=== PATIENT | female | born 1995 | race African-American/Black ===

== ENCOUNTER 2016-06-26 09:02 | Emergency (ER) | payer OTHER ==
[2016-06-26 09:21] VITALS: TEMP 97.5; BMI 30.2
[2016-06-26] MEDS ORDERED: SODIUM CHLORIDE 1,000 ML IV ONE (09:30)
--- NOTE | 2016-06-26 09:45 | PDOC ---
History of Present Illness - General History Source: Patient, Old Records - History of Present Illness Initial Comments: 06/26/16 11:15 The patient is a 20 year old female with a significant past medical history of asthma and seizures (last one 5 years ago) who is arrived to the Emergency Department via EMS with complaints of pre-syncopal episode 2 hours ago. Pt states that she was getting ready for work when she started feeling warmth, lightheadedness, nausea, then had mild pounding headache and felt sob with chest tightness. Episode lasted approximately 15 minutes until EMS arrived. Pt currently asymptomatic. Pt also endorsed intermittent abdominal cramping and back pain similar to her previous menstrual pains. Pt states that she usually gets lightheaded when she is in shower. She denies experiencing any syncopal episodes in the past. She denies numbness, tingling, or blurry vision. She denies fever, chills, cough, nausea, vomiting, diarrhea, melena, bpr, constipation, swelling. She denies any headache or lightheadedness at the time of visit. (-)sick contact (-)recent travel PSH: Gastric Sleeve LMP: started 06/25/16 PCP: Dr. Ravindra Mckenzie <Ana Rolle - Last Filed: 06/26/16 11:14> <iMckey Heart - Last Filed: 06/26/16 12:13> - General Chief Complaint: Lightheaded Stated Complaint: DIZZY Time Seen by Provider: 06/26/16 09:30 Past History <Ana Rolle - Last Filed: 06/26/16 11:14> - Past Medical History Asthma: Yes Suicide Attempt (Hx): No Seizures: Yes - Surgical History GI Surgery: Yes (GASTRIC SLEEVE) - Immunization History Immunization Up to Date: Yes - Psycho/Social/Smoking Cessation Hx Anxiety: No Suicidal Ideation: No Smoking History: Never smoked Have you smoked in the past 12 months: No Hx Alcohol Use: Yes (SOCIAL) Drug/Substance Use Hx: No Substance Use Type: None <Mickey Heart - Last Filed: 06/26/16 12:13> - Past Medical History Allergies/Adverse Reactions: Allergies Allergy/AdvReac Type Severity Reaction Status Date / Time azithromycin [From Zithromax] AdvReac Severe Verified 06/26/16 09:16 Home Medications: Ambulatory Orders Cyclobenzaprine HCl [Flexeril -] 10 mg PO TID #21 tablet 04/22/16 Naproxen [Naprosyn -] 500 mg PO BID #20 tablet 04/22/16 Quazepam [[place]] 15 mg PO ASDIR 04/22/16 Review of Systems - Review of Systems Able to Perform ROS?: Yes Comments:: 06/26/16 11:16 CONSTITUTIONAL: No reported: Fever, Chills, Diaphoresis, Malaise, Loss of Appetite HEENT: No reported: Rhinorrhea, Nasal Congestion, Throat Pain, Throat Swelling, Difficulty Swallowing, Mouth Swelling, Ear Pain, Eye Pain, Visual Changes CARDIOVASCULAR: Yes: chest tightness, SOB, syncope No reported:Palpitations, Irregular Heart Rate, Peripheral Edema RESPIRATORY: No reported: Cough, Shortness of Breath, SOB with Exertion, Orthopnea, Wheezing , Stridor, Hemoptysis GASTROINTESTINAL: No reported: Abdominal pain, Abdominal Distension, Nausea, Vomiting, Diarrhea, Constipation, Melena, Hematochezia GENITOURINARY: No reported: Dysuria, Frequency, Urgency, Hesitancy, Flank Pain, Genital Pain MUSCULOSKELETAL: No reported: Myalgia, Arthralgia, Joint Swelling, Back pain, Neck Pain SKIN: No reported: Rash, Itching, Pallor HEMEATOLOGIC/IMMUNOLOGIC: No reported: Easy Bleeding, Easy Bruising, Lymphadenopathy, Frequent infections ENDOCRINE: No reported: Unexplained Weight Gain, Unexplained Weight Loss, Heat Intolerance , Cold Intolerance NEUROLOGIC: Yes: headache, unsteady gait, vertigo, No reported: Paresthesias, Seizure, Mental Status Changes, Incontinence PSYCHIATRIC: No reported: Anxiety, Depression All Other Systems: Reviewed and Negative <Ana Rolle - Last Filed: 06/26/16 11:14> *Physical Exam - Vital Signs Last Vital Signs Temp Pulse Resp BP Pulse Ox 97.5 F L 55 L 16 100/53 100 06/26/16 09:17 06/26/16 09:17 06/26/16 09:17 06/26/16 09:17 06/26/16 09:17 - Physical Exam Comments: 06/26/16 11:16 GENERAL: The patient is awake, alert, and fully oriented, Nontoxic - in no acute distress. HEAD: Normocephalic, atraumatic. EYES: extraocular movements intact, sclera anicteric, conjunctiva clear. ENT: Normal voice, Moist mucous membranes. NECK: Normal range of motion, supple LUNGS: Breath sounds equal, clear to auscultation bilaterally. No wheezes, no rhonchi, no rales. HEART: Regular rate and rhythm, without murmur, rub or gallop. ABDOMEN: Soft, nontender, normoactive bowel sounds. No guarding, no rebound.No CVA tenderness EXTREMITIES: Normal range of motion, no edema. No clubbing or cyanosis. No cords, erythema, or tenderness. NEUROLOGICAL: No facial assymetry, Normal speech, PSYCH: Normal mood, normal affect. SKIN: Warm, Dry, normal turgor, <Ana Rolle - Last Filed: 06/26/16 11:14> - Vital Signs Last Vital Signs Temp Pulse Resp BP Pulse Ox 97.5 F L 55 L 16 100/53 100 06/26/16 09:17 06/26/16 09:17 06/26/16 09:17 06/26/16 09:17 06/26/16 09:17 <Mickey Heart - Last Filed: 06/26/16 12:13> Heart Score/ECG Review - ECG Impressions Comment:: 06/26/16 11:59 Twelve-lead EKG was performed and reviewed by me. There is normal sinus rhythm with a normal rate. Rate of 63 artifacts present The intervals are normal. There is normal R wave progression There are no ST or T wave abnormalities. Impression: Normal twelve-lead EKG <Mickey Heart - Last Filed: 06/26/16 12:13> ED Treatment Course - LABORATORY CBC & Chemistry Diagram: 06/26/16 09:55 06/26/16 09:55 - ADDITIONAL ORDERS Additional order review: Laboratory Results 06/26/16 06/26/16 10:00 09:55 Sodium 143 Potassium 4.5 Chloride 107 Carbon Dioxide 28 Anion Gap 8 BUN 20 H D Creatinine 0.6 D Creat Clearance w eGFR > 60 Random Glucose 102 Calcium 9.0 Total Bilirubin 0.3 D AST 15 ALT 21 D Alkaline Phosphatase 50 D Total Protein 6.0 L Albumin 3.4 Urine Color Yellow Urine Appearance Clear Urine pH 6.0 Ur Specific [place] 1.027 Urine Protein Negative Urine Glucose (UA) Negative Urine Ketones Negative Urine Blood Negative Urine Nitrite Negative Urine Bilirubin Negative Urine Urobilinogen Negative Ur Leukocyte Esterase Trace H Urine RBC <1 Urine WBC 3 Ur Epithelial Cells Rare Urine Mucus Rare Urine HCG, Qual Negative 06/26/16 09:55 RBC 3.98 MCV 91.1 MCHC 33.3 RDW 13.0 MPV 7.4 L Neutrophils % 83.2 H D Lymphocytes % 9.9 D Monocytes % 5.8 Eosinophils % 0.9 Basophils % 0.2 - Medications Given in the ED: ED Medications Discontinued Medications Generic Name Dose Route Start Last Admin Trade Name Freq PRN Reason Stop Dose Admin Sodium Chloride 1,000 mls @ 1,000 mls/hr 06/26/16 09:30 06/26/16 09:54 Normal Saline - IV 06/26/16 10:29 1,000 mls/hr .Q1H ONE Administration <Ana Rolle - Last Filed: 06/26/16 11:14> - LABORATORY CBC & Chemistry Diagram: 06/26/16 09:55 06/26/16 09:55 <Mickey Heart - Last Filed: 06/26/16 12:13> Medical Decision Making - Medical Decision Making 06/26/16 10:57 20y F hx of seizures (last sz 5 years ago, not on meds currently) presents with episode of presyncope this morning while getting ready for work described as feeling warmth, lightheaded, folowed by sob/chest tightness, mild heaadche, lasting approx 15-20 min until EMS arrived. currently pt asypmtmopatic with unremarkable exam. vitals also normal beside mild bradycardia - BP at baseline. Differential for the patient's presyncope includes but not limited to vasovagal episode, pulmonary embolism, subarachnoid hemorrhage, arrythmia, AAA/ dissection. Based on chronlogy of the patient symptoms and currently being asypmtomatic doubt pulmonary embolism, SAH. No risk factors for dissection/aaa. will check cbc to r/o anemia cmp to r/o electrolyte imbalance ekg to r/o arrhythmia suspect vagal episode will ck labs, ua, preg will give fluids 06/26/16 12:08 labs reviewed negative ekg unremarkable pt asymptomatic and feeling improved will d/c the pt with pmd fu return precautions were discussed I discussed the physical exam findings, ancillary test results and final diagnoses with the patient. I answered all of the patient's questions. The patient was satisfied with the care received and felt comfortable with the discharge plan and treatment plan. The patient will call their primary care physician within 24 hours to arrange follow-up and will return to the Emergency Department with any new, persistent or worsening symptoms. <Mickey Heart - Last Filed: 06/26/16 12:13> *DC/Admit/Observation/Transfer - Attestations Scribe Attestion: 06/26/16 11:16 Documentation prepared by Ana Rolle, acting as medical aides teacher for Mickey Heart MD. <Ana Rolle - Last Filed: 06/26/16 11:14> - Discharge Dispostion Admit: No <Mickey Heart - Last Filed: 06/26/16 12:13> Diagnosis at time of Disposition: Vaso vagal episode - Discharge Dispostion Disposition: HOME Condition at time of disposition: Improved - Referrals Referrals: Ravindra Mckenzie MD [Primary Care Provider] - - Patient Instructions Printed Discharge Instructions: DI for Syncope in Adults (Fainting) Additional Instructions: Return to the emergency department immediately with ANY new, persistent or worsening symptoms including any dizziness, headache, chest pain, palpitations or any other concerns. Please make sure that you are eating and drinking regularly You MUST call and follow up with your doctor tomorrow for further evaluation of your symptoms. Results were discussed with you. Please make sure your doctor reviews the results of your emergency evaluation. Print Language: ROMANSH
[2016-06-26 10:15] LABS: BASOPHIL 0.2 % (0-2.0); EOSINOPHIL 0.9 % (0-4.5); MCH 30.4 pg (25.7-33.7); MCHC 33.3 g/dl (32.0-36.0); MEAN CELL VOLUME 91.1 fl (80-96); MEAN PLT VOLUME 7.4 fl (7.5-11.1); NEUTROPHILS 83.2 % (42.8-82.8); PLATELET COUNT 241 K/MM3 (134-434); WHITE BLOOD COUNT 8.8 K/mm3 (4.0-10.0)
[2016-06-26 10:17] LABS: URINE APPEARANCE CLEAR; URINE BILIRUBIN NEGATIVE (NEGATIVE); URINE BLOOD NEGATIVE (NEGATIVE); URINE COLOR YELLOW; URINE GLUCOSE (UA) NEGATIVE (NEGATIVE); URINE KETONE NEGATIVE (NEGATIVE); URINE LEUK ESTERASE TRACE (NEGATIVE); URINE NITRITE NEGATIVE (NEGATIVE); URINE PROTEIN NEGATIVE (NEGATIVE); URINE UROBILINOGEN NEGATIVE E.U./dl (0.2-1.0)
[2016-06-26 10:25] LABS: URINE MUCUS RARE; URINE RBC <1 /hpf (0-3); URINE WBC 3 /hpf (3-5)
[2016-06-26 10:30] LABS: ALBUMIN 3.4 g/dl (3.4-5.0); ALK PHOS 50 U/L (45-117); ANION GAP 8 (8-16); BILIRUBIN,TOTAL 0.3 mg/dL (0.2-1.0); CO2 28 mmol/L (21-32); CREATININE 0.6 mg/dL (0.55-1.02); GLUCOSE,RANDOM 102 mg/dL (74-106); SGOT/AST 15 U/L (15-37); SGPT/ALT 21 U/L (12-78)
[2016-06-26 12:40] VITALS: BP 110/65; PULSE 62
--- NOTE | 2016-07-01 14:00 | EKG ---
Test Reason : Blood Pressure : / mmHG Vent. Rate : 063 BPM Atrial Rate : 063 BPM P-R Int : 180 ms QRS Dur : 074 ms QT Int : 408 ms P-R-T Axes : 063 072 059 degrees QTc Int : 417 ms UNDETERMINED RHYTHM LOW VOLTAGE QRS BORDERLINE ECG WHEN COMPARED WITH ECG OF 12-MAR-2014 19:33, CURRENT UNDETERMINED RHYTHM PRECLUDES RHYTHM COMPARISON, NEEDS REVIEW QRS VOLTAGE HAS DECREASED Confirmed by LILO FAJARDO, SAMMIE ([id number]) on 07/01/2016 2:00:18 PM Referred By: Confirmed By:SAMMIE NAGY MD
== END 2016-06-26 12:48 | disposition home or self-care (01) ==
LOC: JER 09:02
PROC: 3E0337Z Introduction of Electrolytic and Water Balance Substance into Peripheral Vein, Percutaneous Approach (ICD-10-PCS; principal; 2016-06-26)
DX: R55 Syncope and collapse (principal); J45.909 Unspecified asthma, uncomplicated; Z98.84 Bariatric surgery status
CPT/HCPCS: 36415; 80053; 81003; 81015; 84703; 85025; 93005; 93010; 96360; 99283-25

== ENCOUNTER 2016-11-17 17:39 | Emergency (ER) | payer OTHER ==
[2016-11-17 17:49] VITALS: BP 93/64; PULSE 64; TEMP 98.4; BMI 29.2
--- NOTE | 2016-11-17 19:21 | PDOC ---
History of Present Illness - General History Source: Patient Exam Limitations: No Limitations - History of Present Illness Initial Comments: 11/17/16 19:28 The patient is a 21-year-old female, with a significant past medical historhy of asthma and seizures, who presents to the ED with 2 days of abdominal pain. Pt reports passing a bowel movement in the ED while giving the urine sample and reports that her stools have been soft. She denies any recent travel or sick contacts. The patient denies any fever, chills, nausea, or vomiting. Surgical Hx: Gastric sleeve (1 year ago). <Pratima Ferrell - Last Filed: 11/17/16 19:28> - General History Source: Patient <BasilcrissyRachid - Last Filed: 11/17/16 20:41> - General Chief Complaint: Pain, Acute Stated Complaint: ABDOMINAL PAIN Time Seen by Provider: 11/17/16 19:19 Past History <Pratima Ferrell - Last Filed: 11/17/16 19:28> - Past Medical History Asthma: Yes Suicide Attempt (Hx): No Seizures: Yes - Surgical History GI Surgery: Yes (GASTRIC SLEEVE) - Immunization History Immunization Up to Date: Yes - Psycho/Social/Smoking Cessation Hx Anxiety: No Suicidal Ideation: No Smoking History: Never smoked Have you smoked in the past 12 months: No Information on smoking cessation initiated: No Hx Alcohol Use: No Drug/Substance Use Hx: No Substance Use Type: None <Rachid Aguirre - Last Filed: 11/17/16 20:41> - Past Medical History Allergies/Adverse Reactions: Allergies Allergy/AdvReac Type Severity Reaction Status Date / Time azithromycin [From Zithromax] AdvReac Severe Verified 11/17/16 18:49 Home Medications: Ambulatory Orders Famotidine [Pepcid] 40 mg PO DAILY #30 tablet 11/17/16 Ondansetron [Zofran *Odt*] 4 mg SL TID #30 od.tablet 11/17/16 Review of Systems - Review of Systems Able to Perform ROS?: Yes Comments:: 11/17/16 19:28 CONSTITUTIONAL: Absent: fever, no chills, no fatigue EYES: Absent: visual changes ENT: Absent: ear pain, no sore throat CARDIOVASCULAR: Absent: chest pain, no palpitations RESPIRATORY: Absent: cough, no SOB GI: Present: abdominal pain, soft stool Absent: no nausea, no vomiting, no constipation GENITOURINARY: Absent: dysuria, no frequency, no hematuria MUSKULOSKELETAL: Absent: back pain, no arthralgia, no myalgia SKIN: Absent: rash NEURO: Absent: headache <Pratima Ferrell - Last Filed: 11/17/16 19:28> *Physical Exam - Vital Signs Last Vital Signs Temp Pulse Resp BP Pulse Ox 98.4 F 64 18 93/64 100 11/17/16 17:46 11/17/16 17:46 11/17/16 17:46 11/17/16 17:46 11/17/16 17:46 - Physical Exam Comments: 11/17/16 19:32 GENERAL: Well-appearing, well-nourished. No apparent distress. HEENT: Normocephalic, atraumatic. PERRL, EOM intact. CARDIOVASCULAR: Normal S1, S2. Regular rate and rhythm. PULMONARY: Clear to auscultation bilaterally. ABDOMEN: Soft, non-distended, non-tender. EXTREMITIES: Normal ROM in all four extremities. No gross deformities. SKIN: Warm, dry. No rash NEUROLOGICAL: No focal neurological deficits. <Paula Ferrellie - Last Filed: 11/17/16 19:28> - Vital Signs Last Vital Signs Temp Pulse Resp BP Pulse Ox 98.4 F 64 18 93/64 100 11/17/16 17:46 11/17/16 17:46 11/17/16 17:46 11/17/16 17:46 11/17/16 17:46 <Rachid Aguirre - Last Filed: 11/17/16 20:41> ED Treatment Course - LABORATORY CBC & Chemistry Diagram: 11/17/16 19:44 11/17/16 19:44 <Rachid Aguirre - Last Filed: 11/17/16 20:41> Medical Decision Making - Medical Decision Making 11/17/16 20:41 Dr. Aguirre: The scribe's documentation has been prepared under my direction and personally reviewed by me in its entirery. I confirm that the note above accurately reflects all work, treatment, procedures, and medical decision making performed by me. <Rachid Aguirre - Last Filed: 11/17/16 20:41> *DC/Admit/Observation/Transfer - Attestations Scribe Attestion: 11/17/16 19:32 Documentation prepared by Pratima Ferrell, acting as medical office receptionist assistant for Rachid Aguirre MD. <Pratima Ferrell - Last Filed: 11/17/16 19:28> - Discharge Dispostion Admit: No <Rachid Aguirre - Last Filed: 11/17/16 20:41> Diagnosis at time of Disposition: Abdominal pain Qualifiers: Abdominal location: lower abdomen, unspecified Qualified Code(s): R10.30 - Lower abdominal pain, unspecified - Discharge Dispostion Disposition: HOME Condition at time of disposition: Stable - Referrals Referrals: Ravindra Mckenzie MD [Primary Care Provider] - Mj Parikh MD [Staff Physician] - Quang Tobar MD [Staff Physician] - - Patient Instructions Printed Discharge Instructions: DI for Abdominal Pain-Adult
[2016-11-17] MEDS ORDERED: PANTOPRAZOLE 40 MG TABLET (FP) PO ONE (19:26)
[2016-11-17] MEDS ORDERED: PANTOPRAZOLE 40 MG TABLET (FP) ONE (19:57)
[2016-11-17 20:01] LABS: BASOPHIL 0.3 % (0-2.0); EOSINOPHIL 2.8 % (0-4.5); MCH 29.8 pg (25.7-33.7); MCHC 33.8 g/dl (32.0-36.0); MEAN CELL VOLUME 88.3 fl (80-96); MEAN PLT VOLUME 7.5 fl (7.5-11.1); NEUTROPHILS 54.1 % (42.8-82.8); PLATELET COUNT 253 K/MM3 (134-434); RDW 12.8 % (11.6-15.6); WHITE BLOOD COUNT 6.2 K/mm3 (4.0-10.0)
[2016-11-17 20:07] LABS: URINE APPEARANCE CLEAR; URINE BILIRUBIN NEGATIVE (NEGATIVE); URINE COLOR COLORLESS; URINE GLUCOSE (UA) NEGATIVE (NEGATIVE); URINE KETONE NEGATIVE (NEGATIVE); URINE NITRITE NEGATIVE (NEGATIVE); URINE PROTEIN NEGATIVE (NEGATIVE); URINE UROBILINOGEN NEGATIVE E.U./dl (0.2-1.0)
[2016-11-17 20:20] LABS: URINE BLOOD 2+ (NEGATIVE); URINE LEUK ESTERASE 1+ (NEGATIVE)
[2016-11-17 20:22] LABS: URINE RBC 7 /hpf (0-3); URINE WBC 1 /hpf (3-5)
[2016-11-17 20:31] LABS: ALBUMIN 3.6 g/dl (3.4-5.0); ALK PHOS 58 U/L (45-117); ANION GAP 6 (8-16); BILIRUBIN,TOTAL 0.3 mg/dL (0.2-1.0); CALCIUM 8.7 mg/dL (8.5-10.1); CO2 30 mmol/L (21-32); CREATININE 0.7 mg/dL (0.55-1.02); GLUCOSE,RANDOM 101 mg/dL (74-106); SGOT/AST 16 U/L (15-37); SGPT/ALT 28 U/L (12-78); TOT PROT 6.6 g/dl (6.4-8.2)
[2016-11-17 20:39] LABS: MAGNESIUM 2.1 mg/dL (1.8-2.4)
== END 2016-11-17 20:52 | disposition home or self-care (01) ==
LOC: JER 17:39
DX: R10.30 Lower abdominal pain, unspecified (principal); J45.909 Unspecified asthma, uncomplicated; G40.909 Epilepsy, unspecified, not intractable, without status epilepticus
CPT/HCPCS: 36415; 80053; 81003; 81015; 82150; 83690; 83735; 84703; 85025; 87086; 87186; 99283-25

== ENCOUNTER 2016-12-26 11:26 | Emergency (ER) | payer OTHER ==
[2016-12-26 11:30] VITALS: BP 103/55; PULSE 64; TEMP 97.8; BMI 30.9
--- NOTE | 2016-12-26 11:42 | PDOC ---
History of Present Illness - General Chief Complaint: Injury Stated Complaint: RT FOOT INJURY Time Seen by Provider: 12/26/16 11:39 History Source: Patient Exam Limitations: No Limitations - History of Present Illness Initial Comments: 12/26/16 12:35 Chief complaint: Right foot pain History of present illness: Patient is a 21-year-old female with a history of asthma and epilepsy with last seizure 10 years ago patient reports that she was putting on her leggings and pressed her foot against an item and felt pain to her mid foot. Patient reports the pain currently is a 5 out of 10 when trying to ambulate or lifting her foot in certain positions and there is no visible swelling or deformity of the foot noted except for previous bunion Occurred: reports: this morning Severity: Yes: moderate Lower Extremity Pain Location: right: foot (mid ) Method of Injury: Yes: twisted (rt. foot ), other Modifying Factors: improves with: None Lower Ext. Injury Location - Specific Injury Location Ankle: right no evidence of injury Foot: right foot pain (proximal to rt. mcp 2nd ) Extremity Pain Location - Extremity Pain Location Extremity Pain Locations: right: foot (slightly proximal to rt. 2nd MCP jt ) Past History - Past Medical History Allergies/Adverse Reactions: Allergies Allergy/AdvReac Type Severity Reaction Status Date / Time azithromycin [From Zithromax] AdvReac Severe Verified 12/26/16 11:28 Home Medications: Ambulatory Orders NK [No Known Home Medication] 12/26/16 Asthma: Yes Suicide Attempt (Hx): No Seizures: Yes - Surgical History GI Surgery: Yes (GASTRIC SLEEVE) - Immunization History Immunization Up to Date: Yes - Psycho/Social/Smoking Cessation Hx Anxiety: No Suicidal Ideation: No Smoking History: Never smoked Have you smoked in the past 12 months: No Hx Alcohol Use: No Drug/Substance Use Hx: No Substance Use Type: None Review of Systems - Review of Systems Able to Perform ROS?: Yes Constitutional: No: Symptoms Reported HEENTM: No: Symptoms Reported Respiratory: No: Symptoms reported Cardiac (ROS): No: Symptoms Reported ABD/GI: No: Symptoms Reported : No: Symptoms Reported Musculoskeletal: Yes: Joint Pain (rt foot point tenderness proximal to 2nd MCP jty). No: Joint Swelling Integumentary: No: Symptoms Reported Neurological: No: Symptoms reported *Physical Exam - Vital Signs Last Vital Signs Temp Pulse Resp BP Pulse Ox 97.8 F 64 19 103/55 98 12/26/16 11:28 12/26/16 11:28 12/26/16 11:28 12/26/16 11:28 12/26/16 11:28 - Physical Exam General Appearance: Yes: Appropriately Dressed Respiratory/Chest: positive: Lungs Clear, Normal Breath Sounds. negative: Chest Tender, Respiratory Distress Cardiovascular: positive: Regular Rhythm, Regular Rate, S1, S2 Vascular Pulses: Dorsalis-Pedis (R): 4+ Extremity: positive: Normal Capillary Refill, Tender. negative: Swelling Integumentary: positive: Normal Color Neurologic: positive: Alert, Normal Response (right foot ), Respond to painful stimul (right fo9ot ). negative: Numbness, Sensory Deficit Deep Tendon Reflexes: Ankle (R): 4+ (no induration noted ) Procedures - Consent Consent obtained: From Patient - Splinting Splint Location: Right: Foot Rodrigo Bandage: 3" Progress: 12/26/16 13:19 crutches given and instructions for crutch walking Medical Decision Making - Medical Decision Making 12/26/16 12:36 Patient is a 21-year-old female with a history of asthma and epilepsy with last seizure 10 years ago patient reports that she was putting on her leggings and pressed her foot against an item and felt pain to her mid foot. Patient reports the pain currently is a 5 out of 10 when trying to ambulate or lifting her foot in certain positions and there is no visible swelling or deformity of the foot noted except for previous bunion. She denies any chance of . Right foot pain r/o brenda abnormality PLAN: xray foot right naprosyn 500 mg po now than bid prn pain # 14 tabs ortho referral *DC/Admit/Observation/Transfer Diagnosis at time of Disposition: Foot pain, right - Discharge Dispostion Disposition: HOME Condition at time of disposition: Stable - Referrals Referrals: Ravindra Mckenzie MD [Primary Care Provider] - Noe Steen MD [Staff Physician] - - Patient Instructions Additional Instructions: FOLLOW UP WITH ORTHOPEDIST SOON POSSIBLE ELEVATE RIGHT FOOT MUCH POSSIBLE AND APPLY ICE TO FOOT MUCH POSSIBLE KEEP RODRIGO WRAP ON DURING THE DAY USE CRUTCHES FOR AMBULATION PATIENT VOICED UNDERSTANDING OF DISCHARGE INSTRUCTIONS AND ALL QUESTIONS WERE ANSWERED
[2016-12-26] MEDS ORDERED: NAPROXEN 500 MG TABLET (FP) PO ONE (12:00)
[2016-12-26] MEDS ORDERED: NAPROXEN 500 MG TABLET (FP) ONE (12:03)
== END 2016-12-26 12:53 | disposition home or self-care (01) ==
LOC: JERFT 11:26
DX: M79.671 Pain in right foot (principal); J45.909 Unspecified asthma, uncomplicated; G40.909 Epilepsy, unspecified, not intractable, without status epilepticus; Z88.1 Allergy status to other antibiotic agents; Z98.84 Bariatric surgery status
CPT/HCPCS: 73630-TC-RT; 99281-25

== ENCOUNTER 2017-06-10 13:12 | Emergency (ER) | payer OTHER ==
--- NOTE | 2017-06-10 14:09 | PDOC ---
Rapid Medical Evaluation Time Seen by Provider: 06/10/17 14:07 Medical Evaluation: Allergies Allergy/AdvReac Type Severity Reaction Status Date / Time azithromycin [From Zithromax] AdvReac Severe Verified 12/26/16 11:28 06/10/17 14:07 c/o mid abd pain started at 12 noon today after eating salad with turkey . neg nvd no fever no chills. LMP 3 weeks ago pt had same pain 4 days ago after eating. ordered urine preg
[2017-06-10 14:11] VITALS: BP 120/63; PULSE 71; TEMP 98.4; BMI 34.0
--- NOTE | 2017-06-10 14:46 | PDOC ---
History of Present Illness - General Chief Complaint: Pain, Acute Stated Complaint: ABD PAIN Time Seen by Provider: 06/10/17 14:07 History Source: Patient - History of Present Illness Initial Comments: 06/10/17 14:33 Patient is a 21 y.o. female who presents with acute onset of sharp, non- radiating LUQ abdominal pain that started this afternoon after lunch. Patient denies any associated nausea/vomiting, diarrhea/constipation or fevers/chills. Patient notes she had a similar pain on Wednesday not associated with eating that resolved after 20-30 minutes. Patient's LMP was 3 weeks previous. She is currently sexually active with one partner, denies any h/o STI's (last STI testing in 2014). Allergy: Zithromax Surgical: Gastric Sleeve 2014 Past History - Past Medical History Allergies/Adverse Reactions: Allergies Allergy/AdvReac Type Severity Reaction Status Date / Time azithromycin [From Zithromax] AdvReac Severe Verified 06/10/17 14:08 Home Medications: Ambulatory Orders NK [No Known Home Medication] 12/26/16 Asthma: Yes Seizures: Yes - Surgical History GI Surgery: Yes (GASTRIC SLEEVE) - Immunization History Immunization Up to Date: Yes - Suicide/Smoking/Psychosocial Hx Smoking History: Former smoker Have you smoked in the past 12 months: No Information on smoking cessation initiated: No Hx Alcohol Use: No Drug/Substance Use Hx: No Substance Use Type: None Review of Systems - Review of Systems Constitutional: No: Chills, Fever Respiratory: No: Shortness of Breath Cardiac (ROS): No: Chest Pain ABD/GI: No: Constipated, Diarrhea, Nausea, Rectal Bleeding, Vomiting : No: Burning, Dysuria All Other Systems: Reviewed and Negative *Physical Exam - Vital Signs Last Vital Signs Temp Pulse Resp BP Pulse Ox 98.4 F 71 19 120/63 100 06/10/17 14:08 06/10/17 14:08 06/10/17 14:08 06/10/17 14:08 06/10/17 14:08 - Physical Exam General Appearance: Yes: Nourished, Appropriately Dressed Neck: positive: Trachea midline, Supple Respiratory/Chest: positive: Lungs Clear Cardiovascular: positive: S1, S2 Gastrointestinal/Abdominal: positive: Normal Bowel Sounds, Tender (LUQ/LLQ tenderness), Soft. negative: Distended, Guarding, Rebound, Hernia, Mass Musculoskeletal: negative: CVA Tenderness (R), CVA Tenderness (L) Extremity: positive: Normal Capillary Refill, Normal Inspection, Normal Range of Motion Integumentary: positive: Normal Color, Dry, Warm Neurologic: positive: Fully Oriented, Alert ED Treatment Course - LABORATORY CBC & Chemistry Diagram: 06/10/17 15:00 06/10/17 15:00 Medical Decision Making - Medical Decision Making 06/10/17 15:23 Patient is a 21 y.o. female who presents with acute onset of LUQ abdominal pain. Patient non-toxic, hemodynamically stable, tolerating PO intake. As patient has a h/o gastric sleeve, concern for internal hernia/fistula/ obstruction. Will obtain CT abdomen w/contrast. Reassess. Patient awaiting CT, signed out to Dr. Suárez (Resident) and Dr. Aguirre ( Attending). *DC/Admit/Observation/Transfer Diagnosis at time of Disposition: Ovarian cyst Qualifiers: Laterality: left Qualified Code(s): N83.202 - Unspecified ovarian cyst, left side Abdominal pain Qualifiers: Abdominal location: unspecified location Qualified Code(s): R10.9 - Unspecified abdominal pain - Discharge Dispostion Disposition: HOME Condition at time of disposition: Stable - Referrals Referrals: Tina Sawyer MD [Primary Care Provider] - Yessica Corral MD [Staff Physician] - - Patient Instructions Printed Discharge Instructions: DI for Ovarian Cyst Additional Instructions: You were seen in the ER for abdominal pain. We did lab work and there were no abnormal findings, and you are not . We also did a CT of the abdomen and pelvis and found one small ovarian cyst on the left (2.3 cm maximum diameter ) which is a very common finding and not an emergency. We also found a small amount of fluid within the pelvis which probably means there was a second small ovarian cyst that ruptured. Your pain is likely because of the inflammation related to the fluid in the pelvis. This is a very common diagnosis and the best treatment for you is OTC medications like Naproxen (Aleve). Because you have a sleeve gastrectomy, you have to be careful with NSAID medications like Aleve because they can irritate the stomach lining. Please take the Aleve, but also take an antacid during the time that you are taking the Aleve. Follow up with your bariatric surgeon to tell them you need to take NSAIDs for this pain. Also, follow up with a supervisor paper testing doctor to talk about the ovarian cyst(s). We are providing referral information for you in this packet. Return to the ER for any new or worsening symptoms. - Post Discharge Activity Forms/Work/School Notes: Back to Work
--- NOTE | 2017-06-10 15:24 | PDOC ---
Attending Attestation - Resident Resident Name: Radha Harrison - ED Attending Attestation I have performed the following: I have examined & evaluated the patient, The case was reviewed & discussed with the resident, I agree w/resident's findings & plan, Exceptions are as noted <Mi Bhatia - Last Filed: 06/10/17 15:24> - HPI HPI: 06/10/17 17:58 Patient is a 21 year old female with a significant past medical history of Gastric sleeve s/p 1.5 years, who presents to the ED with complaints of diffuse abdominal pain that began today at 12pm. Patient reports initially experiencing diffuse abdominal pain 5 days ago, that she states lasted 4 hours. She reports pain returned this afternoon, lasting 4 hours, prompting her to come into the ED for further evaluation. Patient rates abdominal pain as a 4/10 in intensity, but states it was severe enough to make her bend over in pain. Denies chest pain, Sob. Denies nausea, vomiting. Denies fevers, chills. Denies contact with sick individuals, change in diet. Denies any other symptoms. Allergies: Azithromycin Social history: Former Smoker. No alcohol. No illicit drugs. Surgical history: Gastric Sleeve (s/p 1.5 years ago) PMD: Dr. Tina Sawyer - Physicial Exam PE: 06/10/17 17:58 GENERAL: Awake, alert, and fully oriented, in no acute distress HEAD: No signs of trauma EYES: PERRLA, EOMI, sclera anicteric, conjunctiva clear ENT: Auricles normal inspection, hearing grossly normal, nares patent, oropharynx clear without exudates. Moist mucosa NECK: Normal ROM, supple, no lymphadenopathy, JVD, or masses LUNGS: Breath sounds equal, clear to auscultation bilaterally. No wheezes, and no crackles HEART: Regular rate and rhythm, normal S1 and S2, no murmurs, rubs or gallops ABDOMEN: +Moderate LUQ and LLQ tenderness to palpation. +Plus guarding. Soft, normoactive bowel sounds. No guarding, no rebound. No masses EXTREMITIES: Normal range of motion, no edema. No clubbing or cyanosis. No cords, erythema, or tenderness NEUROLOGICAL: Cranial nerves II through XII grossly intact. Normal speech, normal gait SKIN: Warm, Dry, normal turgor, no rashes or lesions noted. - Medical Decision Making 06/10/17 17:58 Documentation prepared by Alexis Montenegro, acting as medical office administrator for Mi Bhatia MD, MD/DO. <Alexis Montenegro - Last Filed: 06/10/17 17:58>
[2017-06-10 15:38] LABS: BASO % 0.6 % (0-2.0); EOS % 2.2 % (0-4.5); HEMATOCRIT 37.1 % (32.4-45.2); HEMOGLOBIN 12.5 GM/dL (10.7-15.3); LYMPH % 22.9 % (8-40); MCH 30.1 pg (25.7-33.7); MCHC 33.8 g/dl (32.0-36.0); MEAN CELL VOLUME 89.2 fl (80-96); MEAN PLT VOLUME 7.8 fl (7.5-11.1); MONO % 7.4 % (3.8-10.2); NEUT % 66.9 % (42.8-82.8); PLATELET COUNT 327 K/MM3 (134-434); RBC 4.16 M/mm3 (3.60-5.2); RDW 13.2 % (11.6-15.6); WHITE BLOOD COUNT 6.3 K/mm3 (4.0-10.0)
[2017-06-10 15:41] LABS: URINE APPEARANCE CLEAR; URINE BILIRUBIN NEGATIVE (NEGATIVE); URINE BLOOD NEGATIVE (NEGATIVE); URINE COLOR STRAW; URINE GLUCOSE (UA) NEGATIVE (NEGATIVE); URINE KETONE NEGATIVE (NEGATIVE); URINE LEUK ESTERASE NEGATIVE (NEGATIVE); URINE NITRITE NEGATIVE (NEGATIVE); URINE PROTEIN NEGATIVE (NEGATIVE); URINE UROBILINOGEN NEGATIVE mg/dL (0.2-1.0)
[2017-06-10 16:08] LABS: ALBUMIN 3.8 g/dl (3.4-5.0); ANION GAP 6 (8-16); BLOOD UREA NITROGEN 15 mg/dL (7-18); CHLORIDE 105 mmol/L (98-107); CO2 28 mmol/L (21-32); CREATININE 0.7 mg/dL (0.55-1.02); GLUCOSE,RANDOM 90 mg/dL (74-106); SGPT/ALT 23 U/L (12-78); SODIUM 139 mmol/L (136-145)
[2017-06-10 16:10] LABS: ALK PHOS 57 U/L (45-117); BILIRUBIN,TOTAL 0.3 mg/dL (0.2-1.0); TOT PROT 7.1 g/dl (6.4-8.2)
[2017-06-10 16:11] LABS: POTASSIUM 4.8 mmol/L (3.5-5.1); SGOT/AST 14 U/L (15-37)
[2017-06-10 19:22] LABS: URINE APPEARANCE CLEAR; URINE BILIRUBIN NEGATIVE (NEGATIVE); URINE BLOOD NEGATIVE (NEGATIVE); URINE COLOR STRAW; URINE GLUCOSE (UA) NEGATIVE (NEGATIVE); URINE KETONE TRACE (NEGATIVE); URINE LEUK ESTERASE NEGATIVE (NEGATIVE); URINE NITRITE NEGATIVE (NEGATIVE); URINE PROTEIN NEGATIVE (NEGATIVE); URINE UROBILINOGEN NEGATIVE mg/dL (0.2-1.0)
[2017-06-10 19:24] LABS: HCG,QUALITATIVE URINE NEGATIVE
--- NOTE | 2017-06-10 20:37 | PDOC ---
*Physical Exam - Vital Signs Last Vital Signs Temp Pulse Resp BP Pulse Ox 98.4 F 71 19 120/63 100 06/10/17 14:08 06/10/17 14:08 06/10/17 14:08 06/10/17 14:08 06/10/17 14:08 06/10/17 20:24 Patient's care assumed from Dr. Harrison at the beginning of my shift. 21 YOF with h/o gastric sleeve (2014) and asthma who presents with abdominal pain. Awaiting CT abdomen/pelvis, started drinking PO contrast at about 4pm. Also awaiting UA and preg. - Physical Exam General Appearance: Yes: Nourished, Appropriately Dressed, Other (alert, mildly anxious initially on discussing her diagnosis, but becomes more comfortable with discussion) HEENT: positive: EOMI, CHARISMA, Normal Voice Neck: negative: Lymphadenopathy (R), Lymphadenopathy (L) Respiratory/Chest: positive: Lungs Clear, Normal Breath Sounds. negative: Chest Tender, Respiratory Distress Cardiovascular: positive: Regular Rhythm, Regular Rate, S1, S2. negative: Edema , JVD, Murmur Gastrointestinal/Abdominal: positive: Normal Bowel Sounds, Flat, Soft. negative : Tender, Organomegaly Musculoskeletal: positive: Normal Inspection. negative: CVA Tenderness Extremity: positive: Normal Capillary Refill, Normal Inspection Integumentary: positive: Normal Color, Dry, Warm Neurologic: positive: flexo press operator II-XII NML intact (grossly), Fully Oriented, Alert, Normal Mood/Affect, Normal Response ED Treatment Course - LABORATORY CBC & Chemistry Diagram: 06/10/17 15:00 06/10/17 15:00 - ADDITIONAL ORDERS Additional order review: Laboratory Results 06/10/17 06/10/17 06/10/17 18:50 15:00 15:00 Sodium 139 Potassium 4.8 Chloride 105 Carbon Dioxide 28 Anion Gap 6 L BUN 15 Creatinine 0.7 Creat Clearance w eGFR > 60 Random Glucose 90 Calcium 9.0 Total Bilirubin 0.3 AST 14 L ALT 23 Alkaline Phosphatase 57 Total Protein 7.1 Albumin 3.8 Serum , Qual Cancelled Urine Color Straw Urine Appearance Clear Urine pH 6.0 Ur Specific [place] 1.010 Urine Protein Negative Urine Glucose (UA) Negative Urine Ketones Negative Urine Blood Negative Urine Nitrite Negative Urine Bilirubin Negative Urine Urobilinogen Negative Ur Leukocyte Esterase Negative Urine HCG, Qual 06/10/17 14:33 Sodium Potassium Chloride Carbon Dioxide Anion Gap BUN Creatinine Creat Clearance w eGFR Random Glucose Calcium Total Bilirubin AST ALT Alkaline Phosphatase Total Protein Albumin Serum , Qual Urine Color Straw Urine Appearance Clear Urine pH 6.0 Ur Specific [place] 1.008 Urine Protein Negative Urine Glucose (UA) Negative Urine Ketones Trace H Urine Blood Negative Urine Nitrite Negative Urine Bilirubin Negative Urine Urobilinogen Negative Ur Leukocyte Esterase Negative Urine HCG, Qual Negative 06/10/17 15:00 RBC 4.16 MCV 89.2 MCHC 33.8 RDW 13.2 MPV 7.8 Neutrophils % 66.9 D Lymphocytes % 22.9 D Monocytes % 7.4 Eosinophils % 2.2 Basophils % 0.6 Medical Decision Making - Medical Decision Making 06/10/17 21:00 UA negative, U-pre/hCG negative. Patient at CT. 06/10/17 23:[address] is unremarkable except for 2.3 cm left ovarian cyst, small fluid in pelvis. Most likely the patient had a second ovarian cyst that ruptured. Given the small amt fluid in pelvic cul-de-sac, lack of other acute CT findings , minimal ttp on reexam, the patient is appropriate for DC home. She is given 800 mg Motrin PO here in the ED. She is instructed to take naproxen at home q12h while she is in pain for <1 week. I also discuss the topic of NSAIDs in post-op bariatric patients. She is instructed to take antacids like omeprazole or Tums with NSAIDs. She is given referral info for STAFF RESPIRATORY THERAPIST on-call and instructed to make an appointment with them. Return precautions are discussed. *DC/Admit/Observation/Transfer Diagnosis at time of Disposition: Ovarian cyst Qualifiers: Laterality: left Qualified Code(s): N83.202 - Unspecified ovarian cyst, left side Abdominal pain Qualifiers: Abdominal location: unspecified location Qualified Code(s): R10.9 - Unspecified abdominal pain - Discharge Dispostion Disposition: HOME Condition at time of disposition: Stable Admit: No - Referrals Referrals: Tina Sawyer MD [Primary Care Provider] - Yessica Corral MD [Staff Physician] - - Patient Instructions Printed Discharge Instructions: DI for Ovarian Cyst Additional Instructions: You were seen in the ER for abdominal pain. We did lab work and there were no abnormal findings, and you are not . We also did a CT of the abdomen and pelvis and found one small ovarian cyst on the left (2.3 cm maximum diameter ) which is a very common finding and not an emergency. We also found a small amount of fluid within the pelvis which probably means there was a second small ovarian cyst that ruptured. Your pain is likely because of the inflammation related to the fluid in the pelvis. This is a very common diagnosis and the best treatment for you is OTC medications like Naproxen (Aleve). Because you have a sleeve gastrectomy, you have to be careful with NSAID medications like Aleve because they can irritate the stomach lining. Please take the Aleve, but also take an antacid during the time that you are taking the Aleve. Follow up with your bariatric surgeon to tell them you need to take NSAIDs for this pain. Also, follow up with a rehabilitation worker doctor to talk about the ovarian cyst(s). We are providing referral information for you in this packet. Return to the ER for any new or worsening symptoms. - Post Discharge Activity Forms/Work/School Notes: Back to Work
[2017-06-10] MEDS ORDERED: NAPROXEN 500 MG TABLET (FP) PO ONE (23:02)
[2017-06-10] MEDS ORDERED: IBUPROFEN 400 MG TABLET (FP) PO ONE ×2 (23:21)
== END 2017-06-10 23:33 | disposition home or self-care (01) ==
LOC: JER 13:12
DX: N83.202 Unspecified ovarian cyst, left side (principal)
CPT/HCPCS: 36415; 74177-TC; 80053; 81003; 84703; 85025; 99282-25; Q9967

== ENCOUNTER 2018-09-19 12:59 | Emergency (ER) | payer OTHER ==
[2018-09-19 13:12] VITALS: BP 100/56; PULSE 74; TEMP 98.2; BMI 34.7
--- NOTE | 2018-09-19 13:49 | PDOC ---
History of Present Illness - General Chief Complaint: Vaginal Bleeding Stated Complaint: VAGINAL BLEEDING Time Seen by Provider: 09/19/18 13:47 - History of Present Illness Initial Comments: 09/19/18 13:49 21 year old female with a significant past medical history of Gastric sleeve s/ p 1.5 years, who presents to the ED with heavy vaginal bleeding. She states that she has been bleeding heavily since June, saw her OBGYN Dr. Griffin on September 08 who treated her heavy menses with a daily regimen of contraceptive pill, (3x a day for 3 days, 2x for 2 days a,d 1 each day until bleeding resolution). The bleeding eventually resolved last Wednesday until it resumed yesterday morning. She used 2 pads that day and one more today. She denies abdominal pain. HAsn't had any sexual intercourse since June. Past History - Past Medical History Allergies/Adverse Reactions: Allergies Allergy/AdvReac Type Severity Reaction Status Date / Time azithromycin [From Zithromax] AdvReac Severe Verified 09/19/18 13:09 Home Medications: Ambulatory Orders NK [No Known Home Medication] 12/26/16 Asthma: Yes COPD: No Seizures: Yes - Surgical History GI Surgery: Yes (GASTRIC SLEEVE) - Immunization History Immunization Up to Date: Yes - Suicide/Smoking/Psychosocial Hx Smoking History: Never smoked Have you smoked in the past 12 months: No Information on smoking cessation initiated: No Hx Alcohol Use: No Drug/Substance Use Hx: No Substance Use Type: None Review of Systems - Review of Systems Able to Perform ROS?: Yes Is the patient limited Belgian proficient: No Constitutional: No: Symptoms Reported HEENTM: No: Symptoms Reported Respiratory: No: Symptoms reported Cardiac (ROS): No: Symptoms Reported ABD/GI: No: Symptoms Reported : Yes: See HPI Musculoskeletal: No: Symptoms Reported Integumentary: No: Symptoms Reported All Other Systems: Reviewed and Negative *Physical Exam - Vital Signs Last Vital Signs Temp Pulse Resp BP Pulse Ox 98.2 F 74 17 100/56 L 98 09/19/18 13:09 09/19/18 13:09 09/19/18 13:09 09/19/18 13:09 09/19/18 13:09 - Physical Exam General Appearance: Yes: Nourished, Appropriately Dressed. No: Apparent Distress HEENT: positive: EOMI Respiratory/Chest: positive: Lungs Clear, Normal Breath Sounds. negative: Chest Tender, Respiratory Distress Cardiovascular: positive: Regular Rhythm, Regular Rate, S1, S2 Female Pelvic Exam: positive: other (deferred) Gastrointestinal/Abdominal: positive: Normal Bowel Sounds, Flat, Soft. negative : Tender Extremity: positive: Normal Capillary Refill, Normal Inspection, Normal Range of Motion Integumentary: positive: Normal Color, Dry, Warm Neurologic: positive: Fully Oriented, Alert, Normal Mood/Affect, Normal Response , Motor Strength 09/25 ED Treatment Course - LABORATORY CBC & Chemistry Diagram: 09/19/18 14:00 Medical Decision Making - Medical Decision Making 09/19/18 22:27 Vaginal bleeding symptoms already adressed by chayo's OBGYN, unchange after brief resolution. Will obtain CBC to r/o anemia and contact Dr. Griffin for follow up. No anemia on CBC. Dr Griffin will see the patient immediately after present discharge in her office for further treatment. *DC/Admit/Observation/Transfer Diagnosis at time of Disposition: Vaginal bleeding - Discharge Dispostion Disposition: HOME Condition at time of disposition: Improved Decision to Admit order: No - Referrals Referrals: Ravindra Mckenzie MD [Primary Care Provider] - Erica Griffin MD [Staff Physician] - - Patient Instructions Printed Discharge Instructions: DI for Vaginal Bleeding Additional Instructions: Go to Dr. Griffin's office right after discharge from this ED. Come back to the Emergency department for any new, worsening or concerning symptom. - Post Discharge Activity
[2018-09-19 14:27] LABS: BASO % 0.6 % (0-2.0); EOS % 2.8 % (0-4.5); HEMATOCRIT 34.3 % (32.4-45.2); HEMOGLOBIN 11.4 GM/dL (10.7-15.3); LYMPH % 28.6 % (8-40); MCH 28.8 pg (25.7-33.7); MCHC 33.3 g/dl (32.0-36.0); MEAN CELL VOLUME 86.5 fl (80-96); MEAN PLT VOLUME 7.1 fl (7.5-11.1); MONO % 10.4 % (3.8-10.2); NEUT % 57.6 % (42.8-82.8); PLATELET COUNT 334 K/MM3 (134-434); RBC 3.97 M/mm3 (3.60-5.2); RDW 13.2 % (11.6-15.6); WHITE BLOOD COUNT 5.3 K/mm3 (4.0-10.0)
--- NOTE | 2018-09-19 14:40 | PDOC ---
Documentation entered by Tiffanie Esteban SCRIBE, acting as scribe for Adan Salazar MD. Adan Salazar MD: This documentation has been prepared by the Carlito weber Nirvannie, SCRIBE, under my direction and personally reviewed by me in its entirety. I confirm that the documentation accurately reflects all work, treatment, procedures, and medical decision making performed by me. Attending Attestation - Resident Resident Name: Francisco Salazary - ED Attending Attestation I have performed the following: I have examined & evaluated the patient, The case was reviewed & discussed with the resident, I agree w/resident's findings & plan - HPI HPI: 09/19/18 14:24 CC: Vaginal bleeding HPI: The patient is a 23 year old female, with a significant past medical history of a gastric sleeve, who presents to the emergency department with, worsening vaginal bleeding. As per patient, her menses has become increasingly heavy thus , she went to see her DENTAL CERAMIST HELPER Dr. Griffin at which time she was placed on hormonal supplements. She notes the supplements helped and her menses was not heavy, however, onsetting yesterday it was heavy once again, prompting her arrival to the ED. She denies any changes in strength or sensation. She denies recent chest pain or shortness of breath. Allergies: Azithromycin DENTAL CERAMIST HELPER: Dr. Griffin - Physicial Exam PE: 09/19/18 14:25 Vitals: Triage vital signs reviewed General Appearance: No acute distress, well nourished, well developed Head: Atraumatic Chest Wall: Nontender Cardiac: Regular rate and rhythm, no murmurs, no rubs, no gallops Lungs: Clear to auscultation bilateral, good air movement bilaterally Abdomen: Soft, nondistended, normal bowel sounds, nontender to palpation Genitourinary: Refer to resident exam Rectal: Exam deferred Neuro: AOX3 Psych: Normal mood, normal affect - Medical Decision Making 09/19/18 14:24 23 year old female, with a significant past medical history of a gastric sleeve , who presents to the emergency department with, worsening vaginal bleeding. Plan is: Labs Update DENTAL CERAMIST HELPER Patient was placed on oral contraceptives last week by her WIND TURBINE TECHNICIAN with near resolution of her irregular vaginal bleeding which has unfortunately started again since stopping the medication Her hemoglobin and hematocrit his baseline Case discussed with patient's WIND TURBINE TECHNICIAN she will be discharged from the emergency room and go directly to her OBs office.
== END 2018-09-19 15:47 | disposition home or self-care (01) ==
LOC: JER 12:59
DX: N93.8 Other specified abnormal uterine and vaginal bleeding (principal); Z87.09 Personal history of other diseases of the respiratory system; Z86.69 Personal history of other diseases of the nervous system and sense organs; Z98.84 Bariatric surgery status
CPT/HCPCS: 36415; 85025; 99281-25

== ENCOUNTER 2018-12-07 17:32 | Emergency (ER) | payer OTHER ==
--- NOTE | 2018-12-07 17:42 | PDOC ---
Rapid Medical Evaluation Chief Complaint: Pain Time Seen by Provider: 12/07/18 17:37 Medical Evaluation: Allergies Allergy/AdvReac Type Severity Reaction Status Date / Time azithromycin [From Zithromax] AdvReac Severe Verified 09/19/18 13:09 12/07/18 17:38 I have performed a brief in-person evaluation of this patient. The patient presents with a chief complaint of: jamming injury to right 5th digit- unable to bend / pain Pertinent physical exam findings:swelling and pain at MCP 5th digit I have ordered the following: XraY FINGER The patient will proceed to the ED for further evaluation. 12/07/18 17:40 Discharge Disposition - Diagnosis Finger pain, right - Referrals - Patient Instructions - Post Discharge Activity
[2018-12-07 17:50] VITALS: BP 142/86; PULSE 58; TEMP 98.2; BMI 33.9
--- NOTE | 2018-12-07 17:54 | PDOC ---
History of Present Illness - General Chief Complaint: Injury Stated Complaint: injury Time Seen by Provider: 12/07/18 17:37 History Source: Patient Exam Limitations: Clinical Condition - History of Present Illness Initial Comments: 12/07/18 18:19 Patient with no past medical history present with complaint of 2 months history of pain and swelling to right little finger status post jamming finger into a wall 2 months ago. patient reported increased pain with flexion of finger. Denies numbness or tingling sensation. Denies weakness to finger. Patient did not take anything for pain Occurred: reports: other (5 days ago) Past History - Past Medical History Allergies/Adverse Reactions: Allergies Allergy/AdvReac Type Severity Reaction Status Date / Time azithromycin [From Zithromax] AdvReac Severe Verified 09/19/18 13:09 Home Medications: Ambulatory Orders Naproxen 500 mg PO BID PRN #20 tablet 12/07/18 Asthma: Yes COPD: No Seizures: Yes - Surgical History GI Surgery: Yes (GASTRIC SLEEVE) - Immunization History Immunization Up to Date: Yes - Suicide/Smoking/Psychosocial Hx Smoking History: Never smoked Have you smoked in the past 12 months: No Information on smoking cessation initiated: No Hx Alcohol Use: No Drug/Substance Use Hx: No Substance Use Type: None Review of Systems - Review of Systems Able to Perform ROS?: Yes Is the patient limited Yoruba proficient: No Constitutional: No: Malaise, Weakness HEENTM: No: Symptoms Reported Respiratory: No: Symptoms reported Cardiac (ROS): No: Symptoms Reported Musculoskeletal: Yes: Symptoms Reported, See HPI, Joint Pain (right little finger), Muscle Pain. No: Muscle Weakness Neurological: No: Numbness, Paresthesia, Tingling All Other Systems: Reviewed and Negative *Physical Exam - Vital Signs Last Vital Signs Temp Pulse Resp BP Pulse Ox 98.2 F 58 L 18 142/86 98 12/07/18 17:38 12/07/18 17:38 12/07/18 17:38 12/07/18 17:38 12/07/18 17:38 - Physical Exam Comments: 12/07/18 17:52 GENERAL: Well developed, well nourished. Awake and alert. No acute distress. CARDIOVASCULAR: Regular rate and rhythm. No murmurs, rubs, or gallops. PULMONARY: No evidence of respiratory distress. MUSCULOSKELETAL : mild tenderness over proximal phalange and MCP of right little finger. FROM of finger. 5/5 strength to right 5th finger. No bony deformities SKIN: Warm and dry. Normal capillary refill. No bruising or ecchymosis. NEUROLOGICAL: Alert, awake, appropriate. No motor deficits in the lower extremities. Gait is normal without ataxia. PSYCHIATRIC: Cooperative. Good eye contact. Appropriate mood and affect. General Appearance: Yes: Nourished, Appropriately Dressed. No: Apparent Distress Medical Decision Making - Medical Decision Making 12/07/18 18:21 Patient with no past medical history present with complaint of 2 months history of pain and swelling to right little finger status post jamming finger into a wall 2 months ago. patient reported increased pain with flexion of finger. Denies numbness or tingling sensation. Denies weakness to finger. Patient did not take anything for pain Exam significant for mild tenderness to proximal phalange of right little finger. 5 out of 5 muscle strain to right little finger. Free range of motion of finger. X-ray of right little finger shows questionable nondisplaced fracture over distal aspect middle phalange which is only visible on one view. Patient placed in finger splint. Prescription for Motrin as needed for pain. Referral given for orthopedics hand specialist *DC/Admit/Observation/Transfer Diagnosis at time of Disposition: Finger pain, right - Discharge Dispostion Condition at time of disposition: Stable Decision to Admit order: No - Prescriptions Prescriptions: Naproxen 500 mg PO BID PRN #20 tablet PRN Reason: pain - Referrals Referrals: Noe Steen MD [Staff Physician] - - Patient Instructions Printed Discharge Instructions: Finger Sprain, DI for Finger Sprain Additional Instructions: Keep finger splint on for a week. Take prescribed medication as needed for pain and swelling. Follow-up referred hand orthopedics if no improvement in 4 days - Post Discharge Activity
[2018-12-07] MEDS ORDERED: IBUPROFEN 600 MG TABLET (FP) PO ONE ×2 (18:08→18:18)
== END 2018-12-07 18:14 | disposition home or self-care (01) ==
LOC: JERFT 17:32
PROC: 2W3JX1Z Immobilization of Right Finger using Splint (ICD-10-PCS; principal; 2018-12-07)
DX: M79.644 Pain in right finger(s) (principal); W22.01XA Walked into wall, initial encounter; Y93.89 Activity, other specified; Y92.89 Other specified places as the place of occurrence of the external cause; J45.909 Unspecified asthma, uncomplicated; R56.9 Unspecified convulsions; Z98.84 Bariatric surgery status
CPT/HCPCS: 73140-TC-RT-FY; 99281-25

== ENCOUNTER 2019-04-12 16:37 | Emergency (ER) | payer OTHER ==
[2019-04-12 16:41] VITALS: BP 105/64; PULSE 64; TEMP 98.3; BMI 33.4
--- NOTE | 2019-04-12 17:05 | PDOC ---
History of Present Illness - General Chief Complaint: Cold Symptoms Stated Complaint: COUGH Time Seen by Provider: 04/12/19 16:39 History Source: Patient - History of Present Illness Timing/Duration: reports: other Associated Symptoms: reports: cough Past History - Past Medical History Allergies/Adverse Reactions: Allergies Allergy/AdvReac Type Severity Reaction Status Date / Time azithromycin [From Zithromax] AdvReac Severe Verified 04/12/19 16:41 Home Medications: Ambulatory Orders Naproxen 500 mg PO BID PRN #20 tablet 12/07/18 Benzonatate [Tessalon Pearls -] 100 mg PO TID #21 capsule 04/12/19 Asthma: Yes COPD: No Seizures: Yes - Surgical History GI Surgery: Yes (GASTRIC SLEEVE) - Immunization History Immunization Up to Date: Yes - Psycho Social/Smoking Cessation Hx Smoking History: Never smoked Have you smoked in the past 12 months: No Information on smoking cessation initiated: No Hx Alcohol Use: No Drug/Substance Use Hx: No Substance Use Type: None Review of Systems - Review of Systems Constitutional: No: Chills, Fever HEENTM: No: Ear Pain, Throat Pain Respiratory: Yes: Cough. No: Shortness of Breath, Wheezing *Physical Exam - Vital Signs Last Vital Signs Temp Pulse Resp BP Pulse Ox 98.3 F 64 19 105/64 100 04/12/19 16:38 04/12/19 16:38 04/12/19 16:38 04/12/19 16:38 04/12/19 16:38 - Physical Exam General Appearance: Yes: Appropriately Dressed. No: Apparent Distress HEENT: positive: Normal ENT Inspection, Normal Voice. negative: Scleral Icterus (R), Scleral Icterus (L) Neck: positive: Supple. negative: Lymphadenopathy (R), Lymphadenopathy (L) Respiratory/Chest: positive: Lungs Clear, Normal Breath Sounds. negative: Respiratory Distress, Wheezing Cardiovascular: positive: Regular Rate, S1, S2 Integumentary: positive: Dry, Warm Neurologic: positive: Fully Oriented, Alert, Normal Mood/Affect Medical Decision Making - Medical Decision Making 04/12/19 17:02 3-year-old female, history of asthma here with mostly non-productive cough x several days, not improved with [id number] meds. No wheezing, shortness of breath or chest tightness at this time and no fever or chills. No history of pneumonia. Non-smoker see exam M/l viral URI Exam unremarkable -Dc w/ supportive tx Discharge - Discharge Information Problems reviewed: Yes Clinical Impression/Diagnosis: URI (upper respiratory infection) Qualifiers: URI type: unspecified viral URI Qualified Code(s): J06.9 - Acute upper respiratory infection, unspecified Condition: Good Disposition: HOME - Additional Discharge Information Prescriptions: Benzonatate [Tessalon Pearls -] 100 mg PO TID #21 capsule - Follow up/Referral Referrals: Ravindra Mckenzie MD [Primary Care Provider] - - Patient Discharge Instructions Patient Printed Discharge Instructions: DI for Viral Upper Respiratory Infection -- Adult - Post Discharge Activity Work/Back to School Note: Back to Work
== END 2019-04-12 17:09 | disposition home or self-care (01) ==
LOC: JERFT 16:37
DX: J06.9 Acute upper respiratory infection, unspecified (principal); Z88.8 Allergy status to other drugs, medicaments and biological substances; J45.909 Unspecified asthma, uncomplicated
CPT/HCPCS: 99281-25

== ENCOUNTER 2021-01-31 17:58 | Emergency (ER) | payer OTHER ==
[2021-01-31 18:28] VITALS: BP 134/90; PULSE 80; TEMP 98.8; BMI 41.8
[2021-01-31] MEDS ORDERED: DIPHTH,PERTUSS(ACELL),TET 0.5 ML DISP.SYRIN IM ONE ×3 (19:14→20:06)
[2021-01-31] MEDS ORDERED: IBUPROFEN 600 MG TABLET (FP) PO ONE ×2 (19:14→20:18)
== END 2021-02-01 00:18 | disposition home or self-care (01) ==
LOC: JERFT 17:58 → JER 17:58 → JERFT 02-01 00:18
PROC: 3E0234Z Introduction of Serum, Toxoid and Vaccine into Muscle, Percutaneous Approach (ICD-10-PCS; principal; 2021-01-31)
DX: S61.451A Open bite of right hand, initial encounter (principal); W55.01XA Bitten by cat, initial encounter; Y92.9 Unspecified place or not applicable
CPT/HCPCS: 90471; 90715; 99283-25

== ENCOUNTER 2022-03-09 17:19 | Emergency (ER) | payer OTHER ==
[2022-03-09 17:29] VITALS: BP 102/69; PULSE 80; RESP 18; TEMP 98.4; BMI 41.1
== END 2022-03-09 19:43 | disposition home or self-care (01) ==
LOC: JERFT 17:19 → JER 17:19 → JERFT 19:43
DX: M79.645 Pain in left finger(s) (principal)
CPT/HCPCS: 73140-TC-LT-FY; 99283-25

== ENCOUNTER 2022-05-08 00:53 | Emergency (ER) | payer OTHER ==
[2022-05-08 01:00] VITALS: BMI 44.6
[2022-05-08] MEDS ORDERED: FLUORESCEIN NA 1 EA STRIP ONE (02:08)
[2022-05-08] MEDS ORDERED: ACETAMINOPHEN 500 MG TABLET (FP) PO ONE (03:01)
[2022-05-08] MEDS ORDERED: ACETAMINOPHEN 1000 MG/100 ML BAG IVPB ONE (03:50)
[2022-05-08] MEDS ORDERED: CIPROFLOXACIN 0.3% EYE DROPS 5 ML BOTTLE OP ONE (05:53)
[2022-05-08] MEDS ORDERED: ACETAMINOPHEN 325 MG TABLET (FP) ONE (06:26)
[2022-05-08] MEDS ORDERED: CIPROFLOXACIN 0.3% EYE DROPS 5 ML BOTTLE ONE (06:46)
[2022-05-08 09:19] VITALS: BP 110/65; PULSE 75; RESP 18; TEMP 98
== END 2022-05-08 09:19 | disposition home or self-care (01) ==
LOC: JERFT 00:53 → JER 00:53 → JERFT 09:19
PROC: 3E0333Z Introduction of Anti-inflammatory into Peripheral Vein, Percutaneous Approach (ICD-10-PCS; principal; 2022-05-08)
DX: H16.002 Unspecified corneal ulcer, left eye (principal)
CPT/HCPCS: 0241U-QW; 99284-25

== ENCOUNTER 2023-05-18 08:56 | Emergency (ER) | payer OTHER ==
[2023-05-18 09:10] VITALS: BP 132/70; BMI 51.1
[2023-05-18] MEDS ORDERED: IBUPROFEN 400 MG TABLET (FP) PO ONE ×2 (10:01→10:25)
[2023-05-18] MEDS ORDERED: ACETAMINOPHEN 500 MG TABLET (FP) PO ONE (10:01)
[2023-05-18] MEDS ORDERED: ACETAMINOPHEN 500 MG TABLET (FP) ONE (10:25)
[2023-05-18] MEDS ORDERED: ALBUTEROL SO4 2.5/IPRATROPIUM 0.5 INH SOL 3 ML VIAL.NEB. NEB ONE (10:52)
[2023-05-18] MEDS ORDERED: MAGNESIUM 1GM/D5W - 1 GM/100 ML IVPB IVPB ONE (10:53)
[2023-05-18] MEDS ORDERED: methylPREDNISolone NA SUCC 40 MG/1 ML VIAL ONE (10:53)
[2023-05-18] MEDS ORDERED: methylPREDNISolone NA SUCC 125 MG/2 ML VIAL ONE (10:58)
[2023-05-18] MEDS ORDERED: MAGNESIUM SULFATE IN WATER 2 GM/50 ML IVPB IVPB ONE (11:11)
[2023-05-18 16:04] VITALS: TEMP 98
== END 2023-05-18 11:42 | disposition home or self-care (01) ==
LOC: JER 08:56
DX: M79.671 Pain in right foot (principal); W19.XXXA Unspecified fall, initial encounter; X50.1XXA Overexertion from prolonged static or awkward postures, initial encounter; Y93.41 Activity, dancing
CPT/HCPCS: 73610-TC-RT-FY; 73630-TC-RT-FY; 99283-25